=== PATIENT | female | born 1965 | race Caucasian/White ===

== ENCOUNTER 2018-09-29 11:33 | Emergency (ER) | payer SELFPAY ==
--- NOTE | 2018-09-29 12:51 | ER ---
Nurse's Notes [facility] Name: Kenia Mondragon Age: 52 yrs Sex: Female : 1965 Arrival Date: 09/29/2018 Time: 11:37 Bed 26 Private MD: Diagnosis: Pain in left shoulder;Other injury of muscle(s) and tendon(s) of the rotator cuff of left shoulder Presentation: 09/29 11:48 Presenting complaint: Patient states: "my left arm has been hurting up to my left aa5 shoulder for about 3 or 4 months after a fall". pt states "they did an x-ray and I also saw the orthopedic doctor and all he said was that my elbow was fine". Transition of care: patient was not received from another setting of care. Onset of symptoms was 2017. Risk Assessment: Do you want to hurt yourself or someone else? Patient reports no desire to harm self or others. Initial Sepsis Screen: Does the patient meet any 2 criteria? No. Patient's initial sepsis screen is negative. Does the patient have a suspected source of infection? No. Patient's initial sepsis screen is negative. Care prior to arrival: None. 11:48 Method Of Arrival: Ambulatory aa5 11:48 Acuity: BROCK 4 aa5 Triage Assessment: 12:41 General: Appears in no apparent distress. Behavior is calm, cooperative. 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 - Social history:: Smoking status: Patient uses tobacco products, smokes one-half pack cigarettes per day. - Ebola Screening: : No symptoms or risks identified at this time. - Family history:: not pertinent. Screenin:27 Abuse screen: Denies threats or abuse. Denies injuries from another. Nutritional ls4 screening: No deficits noted. Tuberculosis screening: No symptoms or risk factors identified. Fall Risk None identified. Assessment: 12:40 Pain: Complains of pain in anterior aspect of left shoulder Pain currently is 8 out of ls4 10 on a pain scale. Neuro: No deficits noted. Cardiovascular: No deficits noted. Respiratory: No deficits noted. GI: No deficits noted. : No deficits noted. 13:30 Reassessment: Patient appears in no apparent distress at this time. Patient and/or ls4 family updated on plan of care and expected duration. Pain level reassessed. Patient is alert, oriented x 3, equal unlabored respirations, skin warm/dry/pink. 14:20 Reassessment: Patient appears in no apparent distress at this time. Patient and/or ls4 family updated on plan of care and expected duration. Pain level reassessed. Patient is alert, oriented x 3, equal unlabored respirations, skin warm/dry/pink. Vital Signs: 11:50 BP 112 / 80; Pulse 99; Resp 18 S; Temp 98.4(TE); Pulse Ox 100% on R/A; Weight 86.18 kg aa5 (R); Height 5 ft. 6 in. (167.64 cm) (R); Pain 8/10; 12:30 BP 120 / 63 RA Sitting (auto/reg); Pulse 84; Resp 18; Pulse Ox 100% on R/A; Pain 8/10; jp3 11:50 Body Mass Index 30.67 (86.18 kg, 167.64 cm) aa5 ED Course: 11:37 Patient arrived in ED. mr 11:48 Arm band placed on. aa5 11:50 Triage completed. aa5 12:02 Gamal Owen MD is Attending Physician. sawyer 12:26 Betzaida Goodrich, LISSETTE is Primary Nurse. ls4 12:30 Warm blanket given. Pillow given. Pulse ox on. NIBP on. jp3 12:30 Bed in low position. Call light in reach. Side rails up X 1. jp3 12:41 No provider procedures requiring assistance completed. ls4 12:49 Rios Melo MD is Referral Physician. sawyer 13:10 Sling applied to left arm. ls4 13:23 EKG done, by ED staff, reviewed by Gamal Owen MD. sm3 13:55 X-ray completed. Portable x-ray completed in exam room. Patient tolerated procedure jb2 well. 14:11 Humerus Left XRAY In Process Unspecified. EDMS 14:19 Patient did not have IV access during this emergency room visit. ls4 Administered Medications: 12:58 Drug: Motrin 600 mg Route: PO; ls4 13:50 Follow up: Response: No adverse reaction; Marked relief of symptoms ls4 Outcome: 12:51 Discharge ordered by MD. jacques 14:19 Discharged to home ambulatory, with family. ls4 14:19 Condition: good 14:19 Discharge instructions given to patient, Instructed on discharge instructions, follow up and referral plans. medication usage, Demonstrated understanding of instructions, follow-up care, Prescriptions given X 2. 14:22 Patient left the ED. iw Signatures: Dispatcher [employer] EDMO Gamal Owen MD MD cha Rivera, Marcela mr Kim, Carlos jb2 Rosa Maria Edward, RN RN iw Margie Paz RN RN aa5 Renee Caba3 Neri Sung jp3 Betzaida Goodrich, RN RN ls4
--- NOTE | 2018-09-29 12:51 | EDPHYS ---
Physician Documentation [facility] Name: Kenia Mondragon Age: 52 yrs Sex: Female : 1965 Arrival Date: 09/29/2018 Time: 11:37 Bed 26 Private MD: ELSA Physician Gamal Owen HPI: 09/29 12:46 This 52 yrs old Female presents to ER via Ambulatory with complaints of Arm sawyer Pain, Shoulder Pain. 12:46 The patient or guardian complains of decreased range of motion, pain, that is chronic. sawyer The complaints affect the anterior aspect of left shoulder, left bicep, posterior aspect of left shoulder and left tricep. Context: The problem was sustained at home, resulted from a fall. Onset: The symptoms/episode began/occurred 4 week(s) ago. Treatment prior to arrival includes: no previous treatment. Modifying factors: The symptoms are alleviated by remaining still, the symptoms are aggravated by movement. Associated signs and symptoms: The patient has no apparent associated signs or symptoms. The patient has not experienced similar symptoms in the past. 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 - Social history:: Smoking status: Patient uses tobacco products, smokes one-half pack cigarettes per day. - Ebola Screening: : No symptoms or risks identified at this time. - Family history:: not pertinent. ROS: 12:46 Constitutional: Negative for fever, chills, and weight loss, Eyes: Negative for injury, sawyer pain, redness, and discharge, ENT: Negative for injury, pain, and discharge, Neck: Negative for injury, pain, and swelling, Cardiovascular: Negative for chest pain, palpitations, and edema, Respiratory: Negative for shortness of breath, cough, wheezing, and pleuritic chest pain, Abdomen/GI: Negative for abdominal pain, nausea, vomiting, diarrhea, and constipation, Back: Negative for injury and pain, : Negative for injury, bleeding, discharge, and swelling, Skin: Negative for injury, rash, and discoloration, Neuro: Negative for headache, weakness, numbness, tingling, and seizure, Psych: Negative for depression, anxiety, suicide ideation, homicidal ideation, and hallucinations, Allergy/Immunology: Negative for hives, rash, and allergies, Endocrine: Negative for neck swelling, polydipsia, polyuria, polyphagia, and marked weight changes, Hematologic/Lymphatic: Negative for swollen nodes, abnormal bleeding, and unusual bruising. 12:46 MS/extremity: Positive for injury or acute deformity, decreased range of motion, pain, of the anterior aspect of right shoulder and posterior aspect of right shoulder. Exam: 12:46 Constitutional: This is a well developed, well nourished patient who is awake, alert, sawyer and in no acute distress. Head/Face: Normocephalic, atraumatic. Eyes: Pupils equal round and reactive to light, extra-ocular motions intact. Lids and lashes normal. Conjunctiva and sclera are non-icteric and not injected. Cornea within normal limits. Periorbital areas with no swelling, redness, or edema. ENT: Nares patent. No nasal discharge, no septal abnormalities noted. Tympanic membranes are normal and external auditory canals are clear. Oropharynx with no redness, swelling, or masses, exudates, or evidence of obstruction, uvula midline. Mucous membranes moist. Neck: Trachea midline, no thyromegaly or masses palpated, and no cervical lymphadenopathy. Supple, full range of motion without nuchal rigidity, or vertebral point tenderness. No Meningismus. Chest/axilla: Normal chest wall appearance and motion. Nontender with no deformity. No lesions are appreciated. Cardiovascular: Regular rate and rhythm with a normal S1 and S2. No gallops, murmurs, or rubs. Normal PMI, no JVD. No pulse deficits. Respiratory: Lungs have equal breath sounds bilaterally, clear to auscultation and percussion. No rales, rhonchi or wheezes noted. No increased work of breathing, no retractions or nasal flaring. Abdomen/GI: Soft, non-tender, with normal bowel sounds. No distension or tympany. No guarding or rebound. No evidence of tenderness throughout. Back: No spinal tenderness. No costovertebral tenderness. Full range of motion. Female : Normal external genitalia. Skin: Warm, dry with normal turgor. Normal color with no rashes, no lesions, and no evidence of cellulitis. Neuro: Awake and alert, GCS 15, oriented to person, place, time, and situation. Cranial nerves II-XII grossly intact. Motor strength 5/5 in all extremities. Sensory grossly intact. Cerebellar exam normal. Normal gait. Psych: Awake, alert, with orientation to person, place and time. Behavior, mood, and affect are within normal limits. 12:46 Musculoskeletal/extremity: Extremities: grossly normal except: decreased ROM, pain, tenderness, ROM: full passive range of motion, limited active range of motion, Circulation is intact in all extremities. Sensation intact. Compartment Syndrome exam of affected extremity: is normal. DVT Exam: no swelling, negative Homans' sign noted on exam, no appreciated bluish discoloration, no erythema, no increased warmth, pain, tenderness. Vital Signs: 11:50 BP 112 / 80; Pulse 99; Resp 18 S; Temp 98.4(TE); Pulse Ox 100% on R/A; Weight 86.18 kg aa5 (R); Height 5 ft. 6 in. (167.64 cm) (R); Pain 8/10; 12:30 BP 120 / 63 RA Sitting (auto/reg); Pulse 84; Resp 18; Pulse Ox 100% on R/A; Pain 8/10; jp3 11:50 Body Mass Index 30.67 (86.18 kg, 167.64 cm) aa5 MDM: 12:02 Patient medically screened. [facility] 12:48 Data reviewed: vital signs, nurses notes, EKG, radiologic studies, plain films. [facility] 09/29 12:45 Order name: Humerus Left XRAY [facility] 09/29 12:45 Order name: EKG; Complete Time: 12:46 [facility] 09/29 12:45 Order name: EKG - Nurse/Tech; Complete Time: 13:17 [facility] 09/29 12:45 Order name: Sling; Complete Time: 13:10 [facility] 09/29 12:45 Order name: Ice pack; Complete Time: 12:49 [facility] Administered Medications: 12:58 Drug: Motrin 600 mg Route: PO; ls4 13:50 Follow up: Response: No adverse reaction; Marked relief of symptoms ls4 Disposition: 09/29/18 12:51 Discharged to Home. Impression: Pain in left shoulder, Other injury of muscle(s) and tendon(s) of the rotator cuff of left shoulder. - Condition is Stable. - Discharge Instructions: Joint Pain, Musculoskeletal Pain, Shoulder Pain, Shoulder Pain, [id number], Arthritis, [id number]. - Prescriptions for Ibuprofen 600 mg Oral Tablet - take 1 tablet by ORAL route every 8 hours As needed take with food; 21 tablet. Tylenol- Codeine #3 300-30 mg Oral Tablet - take 2 tablet by ORAL route every 6 hours As needed; 30 tablet. - Medication Reconciliation Form, Thank You Letter, Antibiotic Education, Prescription Opioid Use form. - Follow up: Private Physician; When: 2 - 3 days; Reason: Recheck today's complaints, Continuance of care, Re-evaluation by your physician. Follow up: Rios Melo MD; When: 2 - 3 days; Reason: Recheck today's complaints, Continuance of care, Re-evaluation by your physician. - Problem is new. - Symptoms have improved. Signatures: Dispatcher [employer] EDGamal Coffey MD MD cha Williams, Irene, RN RN iw Margie Paz RN RN aa5 Betzaida Goodrich RN RN ls4 Corrections: (The following items were deleted from the chart) 12:52 12:51 09/29/2018 12:51 Discharged to Home. Impression: Pain in left shoulder; Other ls4 injury of muscle(s) and tendon(s) of the rotator cuff of left shoulder. Condition is Stable. Forms are Medication Reconciliation Form, Thank You Letter, Antibiotic Education, Prescription Opioid Use. Follow up: Private Physician; When: 2 - 3 days; Reason: Recheck today's complaints, Continuance of care, Re-evaluation by your physician. Follow up: Rios Melo; When: 2 - 3 days; Reason: Recheck today's complaints, Continuance of care, Re-evaluation by your physician. Problem is new. Symptoms have improved. sawyer 14:22 12:52 09/29/2018 12:51 Discharged to Home. Impression: Pain in left shoulder; Other iw injury of muscle(s) and tendon(s) of the rotator cuff of left shoulder. Condition is Stable. Discharge Instructions: Joint Pain, Musculoskeletal Pain, Shoulder Pain, Shoulder Pain, [id number], Arthritis, Vvmw-[id number]. Prescriptions for Ibuprofen 600 mg Oral Tablet - take 1 tablet by ORAL route every 8 hours As needed take with food; 21 tablet, Tylenol-Codeine #3 300-30 mg Oral Tablet - take 2 tablet by ORAL route every 6 hours As needed; 30 tablet. and Forms are Medication Reconciliation Form, Thank You Letter, Antibiotic Education, Prescription Opioid Use. Follow up: Private Physician; When: 2 - 3 days; Reason: Recheck today's complaints, Continuance of care, Re-evaluation by your physician. Follow up: Rios Melo; When: 2 - 3 days; Reason: Recheck today's complaints, Continuance of care, Re-evaluation by your physician. Problem is new. Symptoms have improved. ls4
[2018-09-29] MEDS ORDERED: IBUPROFEN 200 MG TAB PO ONE (13:07)
--- NOTE | 2018-09-29 14:30 | RAD REPORT ---
EXAM DESCRIPTION: RAD - Humerus Left - 09/29/2018 2:10 pm CLINICAL HISTORY: PAIN History of fall COMPARISON: No comparisons FINDINGS: No fracture or dislocation seen. No aggressive bone lesion.
--- NOTE | 2018-09-29 18:38 | EKG ---
Test Date: 2018-09-29 Test Time: 13:22:23 Infection Prevention Specialist: ELKIN MEASUREMENT RESULTS: Intervals: Rate: 56 SC: 132 QRSD: 88 QT: 408 QTc: 393 [place]: P: 81 SC: 132 QRS: 12 T: 56 INTERPRETIVE STATEMENTS: Sinus bradycardia Otherwise normal ECG No previous ECG available for comparison Electronically Signed On 09-29-18 18:36:43 [employer] by Samm Driscoll
== END 2018-09-29 14:22 | disposition home or self-care (01) ==
LOC: ER 11:33
DX: S46.092A Other injury of muscle(s) and tendon(s) of the rotator cuff of left shoulder, initial encounter (principal); F17.210 Nicotine dependence, cigarettes, uncomplicated
CPT/HCPCS: 93005; 99284